=== PATIENT | female | born 2000 | race Two or more races ===

== ENCOUNTER 2018-09-01 00:38 | Emergency (ER) | payer MEDICAID, OTHER ==
[~2018-09-01] VITALS: Ht 160 cm; Wt 62.1 kg
[2018-09-01 01:03] VITALS: BP 106/82
[2018-09-01 01:39] LABS: Urine Bacteria FEW /hpf (None Seen); Urine Blood 1+ /uL (Negative); Urine Mucus FEW (None Seen); Urine WBC 120 /hpf (0 - 5)
[2018-09-01 01:50] LABS: Basophils # (auto) 0 uL; Basophils % (auto) 0.2 % (0.0-2.0); Eosinophils # (auto) 0 uL; Eosinophils % (auto) 0.5 % (0.0-7.0); Hematocrit 38.1 % (36.0-46.0); Lymphocytes # (auto) 1.9 uL; Mean Corpuscular Hemoglobin 29.8 pg (28.0-32.0); Mean Corpuscular Volume 87.6 fL (80.0-100.0); Monocytes # (auto) 0.7 uL; Monocytes % (auto) 7.4 % (0.0-12.0); Neutrophils # (auto) 6.2 uL; Neutrophils % (auto) 69.9 % (37.0-80.0); Nucleated Red Blood Cells % 0.1 %; Platelet Count (auto) 287 10^3/uL (140-450); Red Blood Cells 4.35 10^6/uL (4.0-5.20); Red Cell Distribution Width 14.1 % (11.8-14.3); White Blood Cell 8.8 10^3/uL (4.4-10.8)
[2018-09-01 02:08] LABS: Potassium 3.8 mmol/L (3.5-5.1)
[2018-09-01 02:10] LABS: Albumin 3.5 g/dL (3.4-5.0); Calcium 8.9 mg/dL (8.5-10.1)
[2018-09-01 02:13] LABS: BUN/Creatinine Ratio 10.4
[2018-09-01 02:16] LABS: Bilirubin, Total 0.6 mg/dL (0.2-1.0); Total Protein 7.3 g/dL (6.4-8.2)
== END 2018-09-01 07:30 | disposition left against medical advice (07) ==
LOC: ER 00:38
DX: R10.30 Lower abdominal pain, unspecified (principal); R11.2 Nausea with vomiting, unspecified; Z32.01 Encounter for pregnancy test, result positive; Z53.21 Procedure and treatment not carried out due to patient leaving prior to being seen by health care provider
CPT/HCPCS: 36415; 80053; 81001; 84702; 85025

== ENCOUNTER 2020-12-25 21:50 | Emergency (ER) | payer MEDICAID, OTHER ==
[~2020-12-25] VITALS: Ht 162.6 cm; Wt 72.6 kg
[2020-12-25 22:39] LABS: Basophils # (auto) 0 10 ^3/uL (0-0.2); Basophils % (auto) 0.2 % (0.0-2.0); Eosinophils # (auto) 0 10 ^3/uL (0-0.8); Eosinophils % (auto) 0.5 % (0.0-7.0); Hematocrit 36.7 % (36.0-46.0); Hemoglobin 12.3 g/dL (12.2-16.2); Lymphocytes % (auto) 25.6 % (10.0-50.0); Mean Corpuscular Hemoglobin 28.9 pg (28.0-32.0); Mean Corpuscular Hgb Conc. 33.5 g/dL (32.0-36.0); Mean Corpuscular Volume 86.3 fL (80.0-100.0); Monocytes # (auto) 0.6 10 ^3/uL (0-1.3); Monocytes % (auto) 7.9 % (0.0-12.0); Neutrophils # (auto) 5.1 10 ^3/uL (1.6-8.6); Neutrophils % (auto) 65.8 % (37.0-80.0); Nucleated Red Blood Cells % 0.1 %; Red Blood Cells 4.25 10^6/uL (4.0-5.20); Red Cell Distribution Width 13.8 % (11.8-14.3); White Blood Cell 7.7 10^3/uL (4.4-10.8)
[2020-12-25 22:52] LABS: Albumin 3.9 g/dL (3.4-5.0); BUN/Creatinine Ratio 13.1; Calcium 8.5 mg/dL (8.5-10.1); Potassium 3.9 mmol/L (3.5-5.1)
[2020-12-25 22:55] LABS: Bilirubin, Total 0.6 mg/dL (0.2-1.0); Total Protein 7.1 g/dL (6.4-8.2)
[2020-12-26 05:37] VITALS: BP 136/85
== END 2020-12-26 07:51 | disposition home or self-care (01) ==
LOC: ER 21:55
DX: O9A.211 Injury, poisoning and certain other consequences of external causes complicating pregnancy, first trimester (principal); S80.11XA Contusion of right lower leg, initial encounter; Z3A.01 Less than 8 weeks gestation of pregnancy; W22.8XXA Striking against or struck by other objects, initial encounter; Y93.89 Activity, other specified; Y92.89 Other specified places as the place of occurrence of the external cause; Y99.8 Other external cause status
CPT/HCPCS: 36415; 76801; 80053; 84702; 85025; 93971

== ENCOUNTER 2021-02-01 15:50 | Emergency (ER) | payer OTHER ==
[~2021-02-01] VITALS: Ht 162.6 cm; Wt 72.6 kg
[2021-02-01 17:09] LABS: Urine Bacteria NONE SEEN /hpf (None Seen); Urine Blood 2+ /uL (Negative); Urine Mucus FEW (None Seen); Urine Specific Gravity 1.029 (1.001-1.035); Urine WBC 19 /hpf (0 - 5)
[2021-02-01 17:36] VITALS: BP 116/74
== END 2021-02-01 17:47 | disposition home or self-care (01) ==
LOC: ER 15:50
DX: O20.0 Threatened abortion (principal); O23.41 Unspecified infection of urinary tract in pregnancy, first trimester; Z3A.11 11 weeks gestation of pregnancy
CPT/HCPCS: 36415; 76801; 81001; 84702

== ENCOUNTER 2021-08-08 22:43 | Inpatient (IN) | payer OTHER ==
[~2021-08-08] VITALS: Ht 162.6 cm; Wt 77.1 kg
[2021-08-08] MEDS ORDERED: METHYLERGONOVINE MALEATE 0.2 MG/ML AMP IM PRN (23:45)
[2021-08-08] MEDS ORDERED: PROMETHAZINE HCL 25 MG/ML 1ML IV PRN (23:45)
[2021-08-08] MEDS ORDERED: PHISODERM TOP SOLN 240ML BTL TOP PRN (23:45)
[2021-08-08] MEDS ORDERED: LACTATED RINGER'S 1,000 ML IV SCH (23:45)
[2021-08-08] MEDS ORDERED: WITCH HAZEL-GLYCERIN PAD TOP PRN (23:45)
[2021-08-08] MEDS ORDERED: DERMOPLAST 60ML BOTTLE TOP PRN (23:45)
[2021-08-08] MEDS ORDERED: LACT. RINGERS/OXYTOCIN 20UNITS 1,000 ML IV ONE (23:45)
[2021-08-08] MEDS ORDERED: CARBOPROST TROMETHAMINE 250 MCG/1ML VIAL IM PRN (23:45)
[2021-08-08] MEDS ORDERED: miSOPROStol 100 mcg TAB PR PRN (23:45)
[2021-08-08] MEDS ORDERED: PENICILLIN G POT 5MIL/D5 50ML 50 ML IV ONE (23:45)
[2021-08-08] MEDS ORDERED: miSOPROStol 100 mcg TAB SL PRN (23:45)
[2021-08-08] MEDS ORDERED: BUTORPHANOL TARTRATE 2 MG/1 ML VIAL IV PRN ×2 (23:45)
[2021-08-08] MEDS ORDERED: ONDANSETRON HCL 4 MG/2 ML VIAL IV PRN (23:45)
[2021-08-08] MEDS ORDERED: LIDOCAINE 2%HCL (LOCAL ANESTH.) INJ 20ML MDV IJ PRN (23:45)
[2021-08-09] LABS: Basophils # (auto) 0 10 ^3/uL (0-0.2); Basophils % (auto) 0.2 % (0.0-2.0); Eosinophils # (auto) 0 10 ^3/uL (0-0.8); Eosinophils % (auto) 0.2 % (0.0-7.0); Lymphocytes # (auto) 2.2 10 ^3/uL (0.4-5.4); Red Cell Distribution Width 14.5 % (11.8-14.3); White Blood Cell 11.8 10^3/uL (4.4-10.8)
[2021-08-09 00:02] LABS: Hemoglobin 11.2 g/dL (12.2-16.2); Lymphocytes % (auto) 18.4 % (10.0-50.0); Mean Corpuscular Hemoglobin 26.7 pg (28.0-32.0); Mean Corpuscular Volume 78.6 fL (80.0-100.0); Monocytes # (auto) 0.7 10 ^3/uL (0-1.3); Monocytes % (auto) 6.2 % (0.0-12.0); Neutrophils # (auto) 8.9 10 ^3/uL (1.6-8.6); Red Blood Cells 4.19 10^6/uL (4.0-5.20)
[2021-08-09 00:07] LABS: Urine Bacteria NONE SEEN /hpf (None Seen); Urine Blood Negative /uL (Negative); Urine Mucus FEW (None Seen); Urine Specific Gravity 1.014 (1.001-1.035); Urine WBC 2 /hpf (0 - 5)
[2021-08-09] MEDS ORDERED: LIDOCAINE 2%HCL (LOCAL ANESTH.) INJ 20ML MDV ONE (00:14)
[2021-08-09 00:16] LABS: INR 0.89 (0.9-1.15)
[2021-08-09 00:19] LABS: Albumin 2.9 g/dL (3.4-5.0); BUN/Creatinine Ratio 9.8; Calcium 8.9 mg/dL (8.5-10.1); Potassium 3.7 mmol/L (3.5-5.1)
[2021-08-09 00:21] LABS: Bilirubin, Total 0.4 mg/dL (0.2-1.0)
[2021-08-09 00:23] LABS: Alcohol, Urine < 3.0 mg/dL (0-10); Amphetamine Screen, Urine NEGATIVE (NEGATIVE); Barbiturate Scree,Urine NEGATIVE (NEGATIVE); Benzodiazephine Screen, Urine NEGATIVE (NEGATIVE); Cannabinoid Screen, Urine NEGATIVE (NEGATIVE); Cocaine Screen, Urine NEGATIVE (NEGATIVE); Opiate Scree,Urine NEGATIVE (NEGATIVE); Phencyclidine Screen, Urine NEGATIVE (NEGATIVE)
[2021-08-09] MEDS ORDERED: ACETAMINOPHEN 325 MG TAB PO PRN (02:30)
[2021-08-09] MEDS ORDERED: PENICILLIN G POTASSIUM 2,500,000 UNITS in D5W 5% 50 ML IV SCH (03:45)
[2021-08-09] MEDS: IBUPROFEN 800 MG TAB PO SCH ×3 (04:30→20:07)
[2021-08-09 07:00] VITALS: BP 102/58
[2021-08-09] MEDS ORDERED: DIPHENOXYLATE W/ATROPINE 2.5 MG TAB PO SCH (10:00)
[2021-08-09 11:00] VITALS: BP 110/60
[2021-08-09 15:00] VITALS: BP 99/62
[2021-08-09 19:30] VITALS: BP 107/70
[2021-08-09] MEDS ORDERED: DOCUSATE SOD 100 MG CAP PO SCH (22:00)
[2021-08-09 22:48] VITALS: BP 97/59
[2021-08-10 03:00] VITALS: BP 109/64
[2021-08-10] MEDS: IBUPROFEN 800 MG TAB PO SCH ×3 (04:30→20:30)
[2021-08-10 06:44] VITALS: BP 114/64
[2021-08-10 07:07] LABS: Rubella Antibodies, IgG 1.29 index (Immune >0.99)
[2021-08-10 08:06] LABS: RPR Non Reactive (Non Reactive)
[2021-08-10 10:51] VITALS: BP 109/56
[2021-08-10 14:49] VITALS: BP 109/60
[2021-08-10 19:30] VITALS: BP 111/70
[2021-08-10 21:08] VITALS: BP 111/70
== END 2021-08-10 21:08 | disposition home or self-care (01) | DRG 560 ==
LOC: LDRP 22:43 → OBSVTOIN 23:10 → LDRP 08-09 00:33
PROVIDERS: ADMIT Obstetrics & Gynecology Obstetrics; ATTEND Obstetrics & Gynecology Obstetrics
PROC: 10E0XZZ Delivery of Products of Conception, External Approach (ICD-10-PCS; principal; 2021-08-08)
DX: O80 Encounter for full-term uncomplicated delivery (principal); Z37.0 Single live birth; Z20.822 Contact with and (suspected) exposure to COVID-19; Z3A.39 39 weeks gestation of pregnancy
CPT/HCPCS: 36415; 59025; 59409; 80053; 80307; 81001; 81002; 85025; 85610; 85730; 86592; 86703; 86762; 86850; 86900; 86901; 87340; 94760; 96360; 96365; G0378; J2540; J2590; J7060

== ENCOUNTER 2021-09-18 15:57 | Emergency (ER) | payer OTHER ==
[~2021-09-18] VITALS: Ht 165.1 cm; Wt 72.6 kg
[2021-09-18 15:57] VITALS: BP 133/71
== END 2021-09-18 22:10 | disposition home or self-care (01) ==
LOC: ER 15:57
DX: M79.604 Pain in right leg (principal)
CPT/HCPCS: 93971

== ENCOUNTER 2021-11-09 00:38 | Emergency (ER) | payer OTHER ==
[~2021-11-09] VITALS: Ht 165.1 cm; Wt 74.8 kg
[2021-11-09 00:38] VITALS: BP 151/86
== END 2021-11-09 01:50 | disposition home or self-care (01) ==
LOC: ER 00:38
DX: M79.18 Myalgia, other site (principal); M79.662 Pain in left lower leg; M79.661 Pain in right lower leg

== ENCOUNTER 2021-11-30 21:19 | Emergency (ER) | payer OTHER ==
[~2021-11-30] VITALS: Ht 165.1 cm; Wt 72.7 kg
[2021-11-30 21:39] VITALS: BP 116/70
[2021-11-30] MEDS ORDERED: DexAMETHasone SOD PHOS 10MG/1ML VIAL INJ IM ONE (21:45)
== END 2021-11-30 23:59 | disposition home or self-care (01) ==
LOC: ER 21:19
DX: S16.1XXA Strain of muscle, fascia and tendon at neck level, initial encounter (principal); X58.XXXA Exposure to other specified factors, initial encounter; Y93.89 Activity, other specified; Y92.89 Other specified places as the place of occurrence of the external cause; Y99.8 Other external cause status
CPT/HCPCS: 72125; 96372; 99284; J1100

== ENCOUNTER 2022-04-03 20:44 | Emergency (ER) | payer OTHER ==
[2022-04-04] MEDS ORDERED: DexAMETHasone SOD PHOS 10MG/1ML VIAL INJ IM ONE (05:15)
[2022-04-04 05:39] VITALS: BP 124/74
[2022-04-04] MEDS ORDERED: AMOX250C3 PO (05:47)
== END 2022-04-04 05:41 | disposition home or self-care (01) ==
LOC: ER 20:44
DX: R20.2 Paresthesia of skin (principal); K04.7 Periapical abscess without sinus; G58.9 Mononeuropathy, unspecified; R07.89 Other chest pain
CPT/HCPCS: 70450; 71045; 93005